=== PATIENT | male | born 1950 | race African-American/Black ===

== ENCOUNTER 2025-10-09 05:28 | Emergency (ER) | payer OTHER, MEDICAID ==
[~2025-10-09] VITALS: Ht 182.9 cm; Wt 91.0 kg
[2025-10-09 05:32] VITALS: O2SAT 99
[2025-10-09 06:22] LABS: HEMATOCRIT. 39.6 % (42.0-52.0); HEMOGLOBIN. 13.0 g/dL (14.0-18.0); MEAN PLATELET VOLUME 7.6 fl (7.4-10.4); PLATELET 268 x1000/uL (130-400); RED BLOOD CELL COUNT 4.18 mill/uL (4.7-6.1); RED CELL DISTRIBUTION WIDTH 14.0 % (11.6-14.6)
[2025-10-09 06:44] LABS: CREATININE 0.5 mg/dL (0.6-1.3)
[2025-10-09 06:45] LABS: UREA NITROGEN BLOOD 9 mg/dL (9-23)
[2025-10-09 06:46] LABS: TROPONIN I HIGH SENSITIVITY 22 ng/L (3.0-53)
[2025-10-09] MEDS: ACETAMINOPHEN 325MG TABLET PO ONE (07:55)
[2025-10-09] MEDS ORDERED: TOPUD PO (08:26)
[2025-10-09] MEDS: LIDOCAINE HCL/EPINEPHRINE 1%-EPI 1:100,000 20ML VIAL INFIL ONE (08:34)
[2025-10-09 09:00] VITALS: BP 174/103; PULSE 72; RESP 16; TEMP 36.9; O2SAT 100
[2025-10-09 11:02] LABS: BAND% 4.0 % (1.0-6.0); EOSINOPHILS % MANUAL 12.0 % (0.0-5.0); LYMPHOCYTES % MANUAL 21.0 % (20.0-50.0); MONOCYTES % MANUAL 12.0 % (2.0-8.0); NEUTROPHILS % MANUAL 51.0 % (45.0-75.0); PLATELET ESTIMATE NORMAL
== END 2025-10-09 09:32 | disposition home or self-care (01) ==
LOC: ER 05:28 → CANBEDREQ 08:18 → ER 09:32
DX: S01.01XA Laceration without foreign body of scalp, initial encounter (principal); I10 Essential (primary) hypertension; I67.82 Cerebral ischemia; Z86.73 Personal history of transient ischemic attack (TIA), and cerebral infarction without residual deficits; W01.0XXA Fall on same level from slipping, tripping and stumbling without subsequent striking against object, initial encounter; Y92.002 Bathroom of unspecified non-institutional (private) residence as the place of occurrence of the external cause; Y93.89 Activity, other specified; Y99.8 Other external cause status
CPT/HCPCS: 99285; 70450; 71045; 80048; 85025; 84484; 36415; 12013; J2004; A4606